=== PATIENT | male | born 1970 | race Caucasian/White ===

== ENCOUNTER → 2019-06-22 12:03 | Outpatient (CLI) | payer OTHER, SELFPAY ==
[2019-06-22 12:41] LABS: International Normalized Ratio 2.1; Prothrombin Time (Protime)PT. 23.9 SECONDS (11.7-14.9)
== END ==
PROVIDERS: Referring Provider Family Medicine; Visit Provider Family Medicine
DX: Z79.01 Long term (current) use of anticoagulants (principal)
CPT/HCPCS: 85610

== ENCOUNTER → 2019-08-22 12:03 | Outpatient (CLI) | payer OTHER, SELFPAY ==
[2019-08-22 12:38] LABS: International Normalized Ratio 2.9; Prothrombin Time (Protime)PT. 30.7 SECONDS (11.7-14.9)
== END ==
LOC: LABSPEC 12:07
PROVIDERS: Referring Provider Family Medicine; Visit Provider Family Medicine
DX: Z79.01 Long term (current) use of anticoagulants (principal)
CPT/HCPCS: 85610